=== PATIENT | male | born 1945 | race Two or more races ===

== ENCOUNTER 2018-08-23 21:19 | Inpatient (IN) | payer MEDICARE, OTHER ==
[~2018-08-23] VITALS: Ht 167.6 cm; Wt 74.8 kg
[2018-08-23 21:30] VITALS: BP 115/63
[2018-08-23] MEDS ORDERED: MAGNESIUM HYDROXIDE 30 ML UDC PO PRN (21:30)
[2018-08-23] MEDS ORDERED: MAG HYDROX/AL HYDROX/SIMETH 30 ML UDC PO PRN (21:30)
[2018-08-23] MEDS ORDERED: ACETAMINOPHEN 325 MG TABLET PO PRN (21:30)
--- NOTE | 2018-08-23 21:30 | NUR ---
PATIENT ADMITTED DIRECTLY FROM [facility] ON 5149 FOR DTO/GD. CAME TO THE UNIT AROUND 2129 VIA GURNEY, BROUGHT IN BY 2 MALE PARAMEDICS. PATIENT IS ADMITTED DUE TO HIS AGGRESSIVE BEHAVIOR TOWARDS HIS FAMILY MEMBERS AND STAFF, PATIENT WAS CONFUSED AND DISORGANIZED. PLACED PATIENT IN BED COMFORTABLY. PATIENT SHOWS NO S/S OF AF ANY DISTRESS, RESPIRATION EVEN, BREATHING PATTERN NON-LABORED, NO DISCOMFORT NOTED. PATIENT IS ALERT, DOES NOT INTERACT WHEN ENGAGED, CONFUSED, DISORGANIZED, DISORIENTED, DISHEVELED, UNKEMPT. UNCOOPERATIVE, COMBATIVE, AGGRESSIVE, IRRITABLE, UNABLE TO PROVIDE PERTINENT INFORMATIONS. BELONGINGS WERE INVENTORIED AND CHECKED FOR CONTRABAND. PATIENT REFUSED TO SIGN CONSENT. ORDERS WERE OBTAINED FROM OLLIE HOGAN, [facility] RECON DONE BY DR. COOK. DAUGHTER SHAISTA CALLED AND INQUIRED ABOUT HER DAD'S ADMISSION TO THE UNIT, PATIENT SLEEPING AT THE TIME. PATIENT IS HIGH RISK FOR FALL, UNSTEADY GAIT. BED LOCKED AND PLACED ON LOWEST POSITION TO MAINTAIN SAFETY. WILL CONTINUE TO MONITOR Q 15 MINS. FOR SAFETY AND BEHAVIOR.
[2018-08-23] MEDS ORDERED: LACT10SO PO (23:46)
[2018-08-23] MEDS ORDERED: ASPI-1169 PO (23:46)
[2018-08-23] MEDS ORDERED: LISI10TA5 PO (23:46)
[2018-08-23] MEDS ORDERED: METO50TA16 PO (23:46)
[2018-08-23] MEDS ORDERED: ENOX40DI SQ (23:46)
[2018-08-23] MEDS ORDERED: ATOR20TA PO (23:46)
[2018-08-23] MEDS ORDERED: DIVA500T2 PO (23:46)
[2018-08-23] MEDS ORDERED: OLAN10TA3 PO (23:46)
--- NOTE | 2018-08-24 07:30 | NUR ---
GPS RN Opening Note Patient currently in bed resting quietly. No acute distress noted, no agitation or complaints of pain at this time. Alert and oriented x 1, some confusion noted. Able to follow simple commands and able to make needs known in [place] Timorese/Bruneian. Respirations even and unlabored, saturating within baseline on room air. Safety environment observed at all times, Q [address] checks in place. Sitter at bedside. Fall and Safety precautions maintained: bed in lowest and locked position, side rails up x 2, bed alarm on. Will continue to monitor and intervene as needed.
[2018-08-24 08:00] VITALS: BP 129/70
[2018-08-24] MEDS: LACTULOSE 10 G/15 ML UDC (PYXIS) PO SCH ×3 (13:08→21:20)
[2018-08-24] MEDS: ASPIRIN 81 MG TAB.CHEW PO SCH (13:09)
[2018-08-24] MEDS: METOPROLOL TARTRATE 50 MG TABLET PO SCH ×2 (13:09→16:26)
[2018-08-24] MEDS: DIVALPROEX SODIUM 500 MG TABLET.DR PO SCH ×2 (13:09→16:26)
[2018-08-24] MEDS: LISINOPRIL (10MG) 10 MG TABLET PO SCH (13:09)
--- NOTE | 2018-08-24 14:00 | NUR ---
Encouraged frequent PO intake; educated on importance of hydration to improve renal function.
[2018-08-24 14:18] LABS: BASOPHILS % (AUTO) 0.2 % (0.0-2.0); EOSINOPHILS % (AUTO) 0.5 % (0.0-6.0); HEMATOCRIT 45 % (39-51); HEMOGLOBIN 15.8 g/dL (13.5-17.5); LYMPHOCYTES # (AUTO) 1.7 /CMM (0.8-4.8); LYMPHOCYTES % (AUTO) 17.2 % (20.0-44.0); MEAN CORPUSCULAR HGB CONC 35 g/dl (31.0-36.0); MEAN CORPUSCULAR VOLUME 94 fL (80-96); MONOCYTES % (AUTO) 9.8 % (2.0-12.0); NEUTROPHILS # (AUTO) 7.3 /CMM (1.8-8.9); NEUTROPHILS % (AUTO) 72.3 % (43.0-81.0); PLATELET COUNT (AUTO) 212 /CMM (150-450); RED BLOOD CELL COUNT(AUTO) 4.76 MIL/uL (4.5-6.0)
--- NOTE | 2018-08-24 14:20 | NUR ---
SUNSHINE called the pt's daughter in law, Virginie ([phone]), and then was placed on a three way call with her and the pt's , Yesi ([phone]). The two families and the caller discussed the pt's initial treatment and discharge plan. It was discussed that the pt can return home if he is stable but it would be preferable for the pt to be placed in a facility for a short time period. The SW stated that she can start on the referral process to the facilities in their area on Monday when there are more notes available from the doctor.
--- NOTE | 2018-08-24 14:23 | NUR ---
Initial Discharge Note: Pt currently resides at [address] [place] [address]; ([phone]) with his and his disabled adult son. Per pt's family, the pt can return home but a facility would be preferred. Per pt, he would like to return home upon discharge. SW will work with the pt and the MD regarding appropriate discharge planning. SW will form a safe and proper discharge.
[2018-08-24 14:25] LABS: ALANINE AMINOTRANSFERASE 30 U/L (12-78); ALBUMIN 4.3 g/dL (3.4-5.0); ALKALINE PHOSPHATASE 46 U/L (46-116); ASPARTATE AMINOTRANSFERASE 40 U/L (15-37); BILIRUBIN,TOTAL 1.1 mg/dL (0.2-1.0); CALCIUM, SERUM 9.1 mg/dL (8.5-10.1); CARBON DIOXIDE 25 mmol/L (21-32); CHLORIDE 105 mmol/L (98-107); CHOLESTEROL 124 mg/dL (<200); CREATININE 2.1 mg/dL (0.6-1.3); GLUCOSE 173 mg/dL (74-106); HDL CHOLESTEROL 39 mg/dL (40-60); LDL 79 mg/dL (0-99); POTASSIUM 3.7 mmol/L (3.5-5.1); SODIUM SERUM 144 mmol/L (136-145); TOTAL PROTEIN, SERUM 7.9 g/dL (6.4-8.2); TRIGLYCERIDES 88 mg/dL (30-150); UREA NITROGEN, BLOOD 29 mg/dL (7-18)
[2018-08-24] MEDS: ENOXAPARIN SODIUM 30 MG/0.3 ML DISP.SYRIN SQ SCH (14:58)
[2018-08-24 15:58] VITALS: BP 121/77
[2018-08-24] MEDS: LORAZEPAM 0.5 MG TABLET PO PRN (18:05)
[2018-08-24 20:24] VITALS: BP 103/60
[2018-08-24] MEDS: TEMAZEPAM 7.5 MG CAPSULE PO PRN (21:20)
[2018-08-25 06:42] LABS: BASOPHILS % (AUTO) 0.4 % (0.0-2.0); EOSINOPHILS % (AUTO) 0.7 % (0.0-6.0); HEMATOCRIT 44 % (39-51); HEMOGLOBIN 15.6 g/dL (13.5-17.5); LYMPHOCYTES # (AUTO) 1.8 /CMM (0.8-4.8); LYMPHOCYTES % (AUTO) 17.7 % (20.0-44.0); MEAN CORPUSCULAR HGB CONC 35 g/dl (31.0-36.0); MEAN CORPUSCULAR VOLUME 94 fL (80-96); MONOCYTES # (AUTO) 0.9 /CMM (0.1-1.30); MONOCYTES % (AUTO) 8.7 % (2.0-12.0); NEUTROPHILS # (AUTO) 7.4 /CMM (1.8-8.9); NEUTROPHILS % (AUTO) 72.5 % (43.0-81.0); PLATELET COUNT (AUTO) 198 /CMM (150-450); RED BLOOD CELL COUNT(AUTO) 4.72 MIL/uL (4.5-6.0); WHITE BLOOD COUNT (AUTO) 10.3 K/uL (4.3-11.0)
[2018-08-25 06:53] LABS: CALCIUM, SERUM 9.1 mg/dL (8.5-10.1); CARBON DIOXIDE 25 mmol/L (21-32); CHLORIDE 104 mmol/L (98-107); CREATININE 1.8 mg/dL (0.6-1.3); GLUCOSE 127 mg/dL (74-106); MAGNESIUM 2.2 mg/dL (1.8-2.4); PHOSPHORUS 3.6 mg/dL (2.5-4.9); SODIUM SERUM 142 mmol/L (136-145); UREA NITROGEN, BLOOD 32 mg/dL (7-18)
[2018-08-25 08:00] VITALS: BP 118/72
[2018-08-25] MEDS: ASPIRIN 81 MG TAB.CHEW PO SCH (08:39)
[2018-08-25] MEDS: LISINOPRIL (10MG) 10 MG TABLET PO SCH (08:39)
[2018-08-25] MEDS: DIVALPROEX SODIUM 500 MG TABLET.DR PO SCH ×3 (08:39→16:35)
[2018-08-25] MEDS: LACTULOSE 10 G/15 ML UDC (PYXIS) PO SCH ×4 (08:40→21:11)
[2018-08-25] MEDS: METOPROLOL TARTRATE 50 MG TABLET PO SCH ×2 (08:40→16:35)
[2018-08-25] MEDS: ENOXAPARIN SODIUM 30 MG/0.3 ML DISP.SYRIN SQ SCH (08:50)
[2018-08-25 15:49] VITALS: BP 100/59
[2018-08-25 20:00] VITALS: BP 124/60
[2018-08-25] MEDS: ATORVASTATIN 10 MG TABLET PO SCH (21:11)
[2018-08-25] MEDS: OLANZAPINE 5 MG/TAB.RAPDIS PO SCH (21:12)
[2018-08-25] MEDS: TEMAZEPAM 7.5 MG CAPSULE PO PRN (21:54)
[2018-08-25] MEDS: LORAZEPAM 0.5 MG TABLET PO PRN (22:17)
--- NOTE | 2018-08-25 22:17 | NUR ---
GPS-RN PRN NOTES: PATIENT IS VERY ANXIOUS AND RESTLESS, ATTEMPTING TO GET OUT OF BED. ADMINISTERED ATIVAN 1MG PO ORDERED. WILL CONTINUE TO MONITOR CLOSELY PATIENT'S SAFETY AND BEHAVIOR.
[2018-08-26 08:00] VITALS: BP 108/69
[2018-08-26] MEDS: ENOXAPARIN SODIUM 30 MG/0.3 ML DISP.SYRIN SQ SCH (08:35)
[2018-08-26] MEDS: LISINOPRIL (10MG) 10 MG TABLET PO SCH (08:36)
[2018-08-26] MEDS: LACTULOSE 10 G/15 ML UDC (PYXIS) PO SCH ×4 (08:36→21:06)
[2018-08-26] MEDS: DIVALPROEX SODIUM 500 MG TABLET.DR PO SCH ×3 (08:37→16:27)
[2018-08-26] MEDS: OLANZAPINE 5 MG/TAB.RAPDIS PO SCH ×2 (08:37→21:06)
[2018-08-26] MEDS: METOPROLOL TARTRATE 50 MG TABLET PO SCH ×2 (08:37→16:22)
[2018-08-26] MEDS: ASPIRIN 81 MG TAB.CHEW PO SCH (08:37)
[2018-08-26 16:00] VITALS: BP 94/71
[2018-08-26 20:05] VITALS: BP 124/75
[2018-08-26] MEDS: ATORVASTATIN 10 MG TABLET PO SCH (21:06)
[2018-08-26] MEDS: TEMAZEPAM 7.5 MG CAPSULE PO PRN (21:37)
[2018-08-27] MEDS: LORAZEPAM 0.5 MG TABLET PO PRN ×2 (00:55→19:53)
[2018-08-27 08:00] VITALS: BP 141/81
[2018-08-27] MEDS: LACTULOSE 10 G/15 ML UDC (PYXIS) PO SCH ×5 (08:33→21:00)
[2018-08-27] MEDS: ASPIRIN 81 MG TAB.CHEW PO SCH ×2 (08:33→09:00)
[2018-08-27] MEDS: DIVALPROEX SODIUM 500 MG TABLET.DR PO SCH ×4 (08:34→17:51)
[2018-08-27] MEDS: METOPROLOL TARTRATE 50 MG TABLET PO SCH ×3 (08:34→17:51)
[2018-08-27] MEDS: LISINOPRIL (10MG) 10 MG TABLET PO SCH ×2 (08:34→09:00)
[2018-08-27] MEDS: OLANZAPINE 5 MG/TAB.RAPDIS PO SCH ×3 (08:35→21:24)
[2018-08-27] MEDS: ENOXAPARIN SODIUM 30 MG/0.3 ML DISP.SYRIN SQ SCH (08:44)
--- NOTE | 2018-08-27 09:00 | NUR ---
GPS BOTANY LABORATORY ASSISTANT: NOTES PT APPEARS TO BE SEDATED, BUT EASILY AROUSABLE. RESP. EVEN AND UNLABORED. MEDICATIONS HELD AT THIS TIME. WILL CONTINUE TO MONITOR. SITTER AT BEDSIDE.
--- NOTE | 2018-08-27 10:30 | NUR ---
GPS PATROL SERGEANT SHERIFF'S OFFICE: NOTES PT STILL SOUNDLY ASLEEP. RESP EVEN AND UNLABORED. SITTER REMAINS AT BEDSIDE. WILL CONTINUE TO MONITOR.
--- NOTE | 2018-08-27 15:07 | NUR ---
SW called the pt's daughter in law, Virginie ([phone]), and informed her that the psychiatrist has not decided whether or not the pt needs a alf facility or if home would be appropriate for him. The SW stated that once the psychiatrist makes a recommendation, the SW will inform the family and go from there.
[2018-08-27 16:00] VITALS: BP 122/88
[2018-08-27 19:50] VITALS: BP 139/99
--- NOTE | 2018-08-27 19:55 | NUR ---
GPS RN NOTES PT.BEHAVIOR VERY AGRESSIVE , YELLING SCREAMING, NOT FOLLOWING ANY REDIRECTIONS ,ATIVAN 1 MG PO PRN GIVEN , WILL CONTINUE TO MONITOR.
[2018-08-27] MEDS: ATORVASTATIN 10 MG TABLET PO SCH (21:24)
[2018-08-27] MEDS: TEMAZEPAM 7.5 MG CAPSULE PO PRN (23:25)
[2018-08-28 08:00] VITALS: BP 122/78
[2018-08-28] MEDS: DIVALPROEX SODIUM 500 MG TABLET.DR PO SCH ×3 (09:11→17:17)
[2018-08-28] MEDS: LACTULOSE 10 G/15 ML UDC (PYXIS) PO SCH ×4 (09:11→21:14)
[2018-08-28] MEDS: METOPROLOL TARTRATE 50 MG TABLET PO SCH ×2 (09:11→17:00)
[2018-08-28] MEDS: OLANZAPINE 5 MG/TAB.RAPDIS PO SCH ×2 (09:11→21:15)
[2018-08-28] MEDS: ASPIRIN 81 MG TAB.CHEW PO SCH (09:11)
[2018-08-28] MEDS: LISINOPRIL (10MG) 10 MG TABLET PO SCH (09:12)
[2018-08-28] MEDS: ENOXAPARIN SODIUM 30 MG/0.3 ML DISP.SYRIN SQ SCH (09:12)
--- NOTE | 2018-08-28 14:13 | NUR ---
SUNSHINE faxed a referral to these three facilities listed below: [facility]: [phone] [facility]: [phone] [facility]: [phone].
--- NOTE | 2018-08-28 14:54 | NUR ---
Alvina ([phone]) from [facility] called the SW and stated that the pt was admitted to their facility.
[2018-08-28 16:06] VITALS: BP 104/63
[2018-08-28] MEDS: LORAZEPAM 0.5 MG TABLET PO PRN (19:32)
--- NOTE | 2018-08-28 19:33 | NUR ---
GPS RN NOTES: PT.NOTED VERY ANXIOUS RESTLESS ,AGGRESSIVE, UNCOOPERTIVE ,YELLING, SCREAMING,BANGING HEAD FACE ARMS WITH SIDE RAILS ,NOT FOLLOWING ANY REDIRECTIONS ATIVAN 1 MG PO PRN GIVEN,WILL CONTINUE TO MONITOR.
[2018-08-28 20:16] VITALS: BP 100/63
[2018-08-28] MEDS: ATORVASTATIN 10 MG TABLET PO SCH (21:14)
[2018-08-28] MEDS: TEMAZEPAM 7.5 MG CAPSULE PO PRN (23:54)
[2018-08-29] MEDS: DIVALPROEX SODIUM 500 MG TABLET.DR PO SCH ×3 (08:56→16:15)
[2018-08-29] MEDS: ASPIRIN 81 MG TAB.CHEW PO SCH (08:56)
[2018-08-29] MEDS: METOPROLOL TARTRATE 50 MG TABLET PO SCH ×2 (08:56→16:16)
[2018-08-29] MEDS: ENOXAPARIN SODIUM 30 MG/0.3 ML DISP.SYRIN SQ SCH (08:56)
[2018-08-29] MEDS: LISINOPRIL (10MG) 10 MG TABLET PO SCH (08:56)
[2018-08-29] MEDS: LACTULOSE 10 G/15 ML UDC (PYXIS) PO SCH ×4 (08:57→21:16)
[2018-08-29] MEDS: OLANZAPINE 5 MG/TAB.RAPDIS PO SCH ×2 (08:57→21:17)
--- NOTE | 2018-08-29 11:15 | NUR ---
SUNSHINE called Yesi ([phone]), pt's , and informed her that the psychiatrist is recommending a SNF placement. She stated that she understands and agrees to the placement.
[2018-08-29 16:00] VITALS: BP 123/70
[2018-08-29] MEDS: LORAZEPAM 0.5 MG TABLET PO PRN (16:15)
[2018-08-29 20:18] VITALS: BP 92/67
[2018-08-29] MEDS: ATORVASTATIN 10 MG TABLET PO SCH (21:17)
[2018-08-29 23:00] VITALS: BP 107/65
[2018-08-29] MEDS: TEMAZEPAM 7.5 MG CAPSULE PO PRN (23:09)
[2018-08-30 07:50] LABS: APPEARANCE,URINE CLEAR (CLEAR); BILIRUBIN,URINE NEGATIVE (NEGATIVE); BLOOD, URINE NEGATIVE Ery/uL (NEGATIVE); COLOR,URINE YELLOW (YELLOW); KETONES,URINE 1+ (NEGATIVE); LEUKOCYTE ESTERASE ,URINE NEGATIVE (NEGATIVE); NITRITE, URINE NEGATIVE (NEGATIVE); PH,URINE 5.5 (5.0-8.0); PROTEIN,URINE NEGATIVE (NEGATIVE); UGLUCOSE NEGATIVE (NEGATIVE); UROBILINOGEN,URINE 0.2 EU/dL (0.2)
[2018-08-30 08:00] VITALS: BP 143/81
[2018-08-30 08:36] LABS: BACTERIA,URINE None seen /HPF (None Seen); RBC,URINE NONE SEEN /HPF (0-2); SQUAMOUS EPITHELIAL CELL,UR Few /HPF (None Seen); WBC,URINE 0-2 /HPF (0-3)
[2018-08-30] MEDS: ASPIRIN 81 MG TAB.CHEW PO SCH (09:26)
[2018-08-30] MEDS: LACTULOSE 10 G/15 ML UDC (PYXIS) PO SCH ×4 (09:27→21:20)
[2018-08-30] MEDS: DIVALPROEX SODIUM 500 MG TABLET.DR PO SCH ×3 (09:28→16:43)
[2018-08-30] MEDS: METOPROLOL TARTRATE 50 MG TABLET PO SCH ×2 (09:29→16:43)
[2018-08-30] MEDS: OLANZAPINE 5 MG/TAB.RAPDIS PO SCH ×2 (09:29→21:21)
[2018-08-30] MEDS: LISINOPRIL (10MG) 10 MG TABLET PO SCH (09:29)
[2018-08-30] MEDS: ENOXAPARIN SODIUM 30 MG/0.3 ML DISP.SYRIN SQ SCH (09:30)
[2018-08-30 16:01] VITALS: BP 107/59
--- NOTE | 2018-08-30 19:25 | NUR ---
GPS RN NOTES RECEIVED ON BED A/O X1,CONFUSED,DISORIENTED.NOTED BILATERAL ARMS DISCOLORATION,ALONG WITH THE LEGS AND FOOT.SITTER AT BEDSIDE FOR SAFETY.WILL CONTINUE TO MONITOR BEHAVIOR.
[2018-08-30 20:00] VITALS: BP 113/54
[2018-08-30] MEDS: ATORVASTATIN 10 MG TABLET PO SCH (21:21)
[2018-08-30] MEDS: TEMAZEPAM 7.5 MG CAPSULE PO PRN (21:21)
[2018-08-31 07:53] LABS: BASOPHILS % (AUTO) 0.5 % (0.0-2.0); EOSINOPHILS % (AUTO) 0.4 % (0.0-6.0); HEMATOCRIT 42 % (39-51); HEMOGLOBIN 14.7 g/dL (13.5-17.5); LYMPHOCYTES # (AUTO) 1.5 /CMM (0.8-4.8); LYMPHOCYTES % (AUTO) 16.5 % (20.0-44.0); MEAN CORPUSCULAR HGB CONC 35 g/dl (31.0-36.0); MEAN CORPUSCULAR VOLUME 94 fL (80-96); MONOCYTES % (AUTO) 10.4 % (2.0-12.0); NEUTROPHILS # (AUTO) 6.6 /CMM (1.8-8.9); NEUTROPHILS % (AUTO) 72.2 % (43.0-81.0); PLATELET COUNT (AUTO) 177 /CMM (150-450); RED BLOOD CELL COUNT(AUTO) 4.47 MIL/uL (4.5-6.0); WHITE BLOOD COUNT (AUTO) 9.2 K/uL (4.3-11.0)
[2018-08-31 08:00] VITALS: BP 104/61
[2018-08-31 08:00] LABS: ALANINE AMINOTRANSFERASE 28 U/L (12-78); ALBUMIN 3.7 g/dL (3.4-5.0); ALKALINE PHOSPHATASE 43 U/L (46-116); ASPARTATE AMINOTRANSFERASE 18 U/L (15-37); BILIRUBIN,TOTAL 0.8 mg/dL (0.2-1.0); CALCIUM, SERUM 8.9 mg/dL (8.5-10.1); CARBON DIOXIDE 26 mmol/L (21-32); CHLORIDE 105 mmol/L (98-107); CREATININE 1.7 mg/dL (0.6-1.3); GLUCOSE 117 mg/dL (74-106); MAGNESIUM 2.6 mg/dL (1.8-2.4); PHOSPHORUS 4.3 mg/dL (2.5-4.9); POTASSIUM 4.2 mmol/L (3.5-5.1); SODIUM SERUM 142 mmol/L (136-145); TOTAL PROTEIN, SERUM 7.3 g/dL (6.4-8.2); UREA NITROGEN, BLOOD 40 mg/dL (7-18)
[2018-08-31] MEDS: METOPROLOL TARTRATE 50 MG TABLET PO SCH ×2 (09:00→17:00)
[2018-08-31] MEDS: LISINOPRIL (10MG) 10 MG TABLET PO SCH (09:00)
[2018-08-31] MEDS: DIVALPROEX SODIUM 500 MG TABLET.DR PO SCH ×3 (10:08→16:54)
[2018-08-31] MEDS: ASPIRIN 81 MG TAB.CHEW PO SCH (10:08)
[2018-08-31] MEDS: LACTULOSE 10 G/15 ML UDC (PYXIS) PO SCH ×4 (10:08→21:31)
[2018-08-31] MEDS: ENOXAPARIN SODIUM 30 MG/0.3 ML DISP.SYRIN SQ SCH (10:09)
[2018-08-31] MEDS: OLANZAPINE 5 MG/TAB.RAPDIS PO SCH ×2 (10:11→21:32)
--- NOTE | 2018-08-31 15:25 | NUR ---
SUNSHINE called Yesi ([phone]), pt's , and informed her that the pt was not accepted to any facility other than [facility]. She stated that she accepts that placement. SUNSHINE informed her that when she receives a discharge date, she will be sure to inform her.
[2018-08-31 16:00] VITALS: BP 108/57
[2018-08-31 20:00] VITALS: BP 104/64
[2018-08-31] MEDS: LORAZEPAM 0.5 MG TABLET PO PRN (21:31)
[2018-08-31] MEDS: ATORVASTATIN 10 MG TABLET PO SCH (21:33)
[2018-08-31] MEDS: TEMAZEPAM 7.5 MG CAPSULE PO PRN (23:24)
[2018-09-01 08:00] VITALS: BP 126/75
[2018-09-01] MEDS: OLANZAPINE 5 MG/TAB.RAPDIS PO SCH ×2 (08:46→21:21)
[2018-09-01] MEDS: ENOXAPARIN SODIUM 30 MG/0.3 ML DISP.SYRIN SQ SCH (08:46)
[2018-09-01] MEDS: ASPIRIN 81 MG TAB.CHEW PO SCH (08:46)
[2018-09-01] MEDS: LACTULOSE 10 G/15 ML UDC (PYXIS) PO SCH ×4 (08:47→20:18)
[2018-09-01] MEDS: METOPROLOL TARTRATE 50 MG TABLET PO SCH ×2 (08:47→17:00)
[2018-09-01] MEDS: LISINOPRIL (10MG) 10 MG TABLET PO SCH (08:47)
[2018-09-01] MEDS: DIVALPROEX SODIUM 125 MG CAP.SPRINK PO SCH ×3 (08:48→17:00)
[2018-09-01 16:00] VITALS: BP 119/60
--- NOTE | 2018-09-01 17:56 | NUR ---
GPS/RN PT REFUSED 1700 MEDS OFFERED X3.
[2018-09-01 20:00] VITALS: BP 116/80
[2018-09-01] MEDS: ATORVASTATIN 10 MG TABLET PO SCH (21:22)
[2018-09-01] MEDS: TEMAZEPAM 7.5 MG CAPSULE PO PRN (21:22)
[2018-09-02 08:00] VITALS: BP 131/87
[2018-09-02] MEDS: OLANZAPINE 5 MG/TAB.RAPDIS PO SCH ×2 (10:17→22:16)
[2018-09-02] MEDS: LACTULOSE 10 G/15 ML UDC (PYXIS) PO SCH ×4 (10:17→21:30)
[2018-09-02] MEDS: DIVALPROEX SODIUM 125 MG CAP.SPRINK PO SCH ×3 (10:17→16:20)
[2018-09-02] MEDS: LISINOPRIL (10MG) 10 MG TABLET PO SCH (10:18)
[2018-09-02] MEDS: ENOXAPARIN SODIUM 30 MG/0.3 ML DISP.SYRIN SQ SCH (10:18)
[2018-09-02] MEDS: ASPIRIN 81 MG TAB.CHEW PO SCH (10:19)
[2018-09-02] MEDS: METOPROLOL TARTRATE 50 MG TABLET PO SCH ×2 (10:19→16:20)
--- NOTE | 2018-09-02 12:05 | NUR ---
ALERTED BY PROFESSOR OF SPANISH PT. WITH LOW BP.,70/50 RT. ARM. RECHECKED LT. [id number]
--- NOTE | 2018-09-02 12:10 | NUR ---
BP113/63,POX FLUCTUATING.AT 1206 02 0N AT 5L AND LEVEL UP TO 92-93%.THEN SUDDENLY POX TO 89%.RESP. TX CALLED BY RN AND ABG ORDERED.PT. SITTING UPRIGHT IN CHAIR.GROGGY TO LETHARGICTHEN PERIODICALLY FIDGETY IN CHAIR. FAMILY PRESENT.
--- NOTE | 2018-09-02 12:14 | NUR ---
BP 97/69.HEART RATE 88,POX STILL FLUCTUATING,O2 MASK APPLIED AT 8L.
[2018-09-02 12:52] LABS: ABG BASE EXCESS 1.9 mmol/L; ABG PCO2 31.7 mmHg (35.0-45.0); ABG PH 7.501 (7.350-7.450); ABG PO2 71.1 mmHg (75.0-100.0); AaDO2 177.6 mmHg; SITE, ABG Right Radial; VENT MODE, BG Nasal Cannula
--- NOTE | 2018-09-02 12:53 | NUR ---
DR. STONE NOTIFIED THAT PT. IS LETHARGIC. BP 91/58, WI 90 AND OXYGEN SAT 88% WITH 5L OXYGEN VIA NASAL. PT. WITH AN ORDER TO STAT CBC, BMP, STAT U/A AND URINE CULTURE AND TO DO IN AND OUT.
--- NOTE | 2018-09-02 12:55 | NUR ---
PT. BACK TO BED CATH DONE OBTAINED 450 ML ARIADNA COLORED URINE.PT STARTLED WHEN CATH INSERTED AND MOMENTARILY AWAKE.NOW A LITTLE RESTLESS AND PUT BACK IN QUINCY CHAIR.RECEIVED LABS AND ABG RESULTS.
[2018-09-02 13:23] LABS: APPEARANCE,URINE CLEAR (CLEAR); BASOPHILS % (AUTO) 0.2 % (0.0-2.0); BILIRUBIN,URINE 1+ (NEGATIVE); BLOOD, URINE NEGATIVE Ery/uL (NEGATIVE); COLOR,URINE AMBER (YELLOW); EOSINOPHILS % (AUTO) 0.1 % (0.0-6.0); HEMATOCRIT 45 % (39-51); HEMOGLOBIN 15.6 g/dL (13.5-17.5); KETONES,URINE 1+ (NEGATIVE); LEUKOCYTE ESTERASE ,URINE NEGATIVE (NEGATIVE); LYMPHOCYTES # (AUTO) 0.8 /CMM (0.8-4.8); LYMPHOCYTES % (AUTO) 7.5 % (20.0-44.0); MEAN CORPUSCULAR HGB CONC 34 g/dl (31.0-36.0); MEAN CORPUSCULAR VOLUME 95 fL (80-96); MONOCYTES # (AUTO) 1.1 /CMM (0.1-1.30); MONOCYTES % (AUTO) 10.2 % (2.0-12.0); NEUTROPHILS # (AUTO) 8.9 /CMM (1.8-8.9); NITRITE, URINE NEGATIVE (NEGATIVE); PLATELET COUNT (AUTO) 212 /CMM (150-450); PROTEIN,URINE 1+ mg/dl (NEGATIVE); UGLUCOSE 2+ mg/dL (NEGATIVE); UROBILINOGEN,URINE 0.2 EU/dL (0.2); WHITE BLOOD COUNT (AUTO) 10.9 K/uL (4.3-11.0)
[2018-09-02 13:29] LABS: BACTERIA,URINE Rare /HPF (None Seen); MUCUS,URINE Few /LPF (None Seen); RBC,URINE 0-2 /HPF (0-2); SQUAMOUS EPITHELIAL CELL,UR 0-2 /HPF (None Seen); URINE AMORPHOUS URATE Few /HPF (None Seen)
[2018-09-02] MEDS ORDERED: TEMAZEPAM 7.5 MG CAPSULE PO PRN (13:30)
[2018-09-02 13:36] LABS: CALCIUM, SERUM 9.3 mg/dL (8.5-10.1); CARBON DIOXIDE 28 mmol/L (21-32); CHLORIDE 102 mmol/L (98-107); CREATININE 1.8 mg/dL (0.6-1.3); GLUCOSE 196 mg/dL (74-106); POTASSIUM 4.2 mmol/L (3.5-5.1); SODIUM SERUM 140 mmol/L (136-145); UREA NITROGEN, BLOOD 30 mg/dL (7-18)
--- NOTE | 2018-09-02 14:10 | NUR ---
DR. STONE RECALLED AND INFORMED OF LOW BP87/57,HR 92.POX 92-98%.PT. STILL VERY GROGGY ORDERS GIVEN FOR IV FLUIDS
[2018-09-02] MEDS ORDERED: IV NS 0.9% 1,000 ML BAG IV PRN (14:30)
[2018-09-02] MEDS ORDERED: IV NS 0.9% 1,000 ML IV ONE (14:30)
--- NOTE | 2018-09-02 14:45 | NUR ---
ANGIOCATH #22 PLACED RT. FOREARM FOR BOLUS FLUIDS.PT. TOLERATED FAIRLY WELL.DR. STONE HERE TO SEE PT AND ADDITIONALLY SPOKE WITH FAMILY.
[2018-09-02 16:00] VITALS: BP 102/67
[2018-09-02 20:16] VITALS: BP 98/50
[2018-09-02] MEDS: ATORVASTATIN 10 MG TABLET PO SCH (22:00)
--- NOTE | 2018-09-02 22:20 | NUR ---
UNABLE TO GET ATORVASTATIN SUPPLY FROM OTHER UNIT. CN MADE AWARE.
[2018-09-03 07:24] LABS: BASOPHILS % (AUTO) 0.4 % (0.0-2.0); EOSINOPHILS % (AUTO) 1.3 % (0.0-6.0); HEMATOCRIT 42 % (39-51); HEMOGLOBIN 14.5 g/dL (13.5-17.5); LYMPHOCYTES # (AUTO) 1.2 /CMM (0.8-4.8); LYMPHOCYTES % (AUTO) 15.2 % (20.0-44.0); MEAN CORPUSCULAR HGB CONC 35 g/dl (31.0-36.0); MEAN CORPUSCULAR VOLUME 95 fL (80-96); MONOCYTES # (AUTO) 0.9 /CMM (0.1-1.30); MONOCYTES % (AUTO) 11.3 % (2.0-12.0); NEUTROPHILS # (AUTO) 5.8 /CMM (1.8-8.9); NEUTROPHILS % (AUTO) 71.8 % (43.0-81.0); PLATELET COUNT (AUTO) 194 /CMM (150-450); RED BLOOD CELL COUNT(AUTO) 4.39 MIL/uL (4.5-6.0); WHITE BLOOD COUNT (AUTO) 8.1 K/uL (4.3-11.0)
[2018-09-03 07:25] LABS: CALCIUM, SERUM 9.1 mg/dL (8.5-10.1); CARBON DIOXIDE 29 mmol/L (21-32); CHLORIDE 107 mmol/L (98-107); CREATININE 1.8 mg/dL (0.6-1.3); GLUCOSE 111 mg/dL (74-106); POTASSIUM 4.1 mmol/L (3.5-5.1); SODIUM SERUM 145 mmol/L (136-145); UREA NITROGEN, BLOOD 41 mg/dL (7-18)
[2018-09-03 08:00] VITALS: BP 90/59
[2018-09-03] MEDS: LISINOPRIL (10MG) 10 MG TABLET PO SCH (09:00)
[2018-09-03] MEDS: METOPROLOL TARTRATE 50 MG TABLET PO SCH ×2 (09:00→17:18)
[2018-09-03] MEDS: ENOXAPARIN SODIUM 30 MG/0.3 ML DISP.SYRIN SQ SCH (09:40)
[2018-09-03] MEDS: LACTULOSE 10 G/15 ML UDC (PYXIS) PO SCH ×4 (09:41→22:05)
[2018-09-03] MEDS: DIVALPROEX SODIUM 125 MG CAP.SPRINK PO SCH ×3 (09:41→17:18)
[2018-09-03] MEDS: ASPIRIN 81 MG TAB.CHEW PO SCH (09:41)
[2018-09-03] MEDS: OLANZAPINE 5 MG/TAB.RAPDIS PO SCH ×2 (09:41→22:05)
--- NOTE | 2018-09-03 12:11 | NUR ---
Alvina ([phone]) from [facility] called the SW and confirmed that the pt is still being discharged to their facility. The SW said that he is but that she has not received a discharge date from the psychiatrist.
--- NOTE | 2018-09-03 13:26 | NUR ---
SW called Yesi ([phone]), pt's , and informed her that the pt will be discharged to [facility] tomorrow. She stated that she has concerns about the medications and the SW stated that the pt needs time to adjust to them and therefore him being at a fdc facility would be beneficial because it gives his body more time to adjust in a safe environment. She stated that she understands but would still appreciate a call from the psychiatrist later this evening.
--- NOTE | 2018-09-03 13:33 | NUR ---
SUNSHINE called Alvina ([phone]) from [facility] and informed her that the pt will be discharged tomorrow per Dr. Silver.
[2018-09-03 16:00] VITALS: BP 130/71
[2018-09-03 20:00] VITALS: BP 106/75
[2018-09-03] MEDS: LORAZEPAM 0.5 MG TABLET PO PRN (20:09)
[2018-09-03] MEDS: ATORVASTATIN 10 MG TABLET PO SCH (22:05)
[2018-09-04 08:00] VITALS: BP 102/56
[2018-09-04] MEDS: ASPIRIN 81 MG TAB.CHEW PO SCH (08:30)
[2018-09-04] MEDS: LACTULOSE 10 G/15 ML UDC (PYXIS) PO SCH (08:30)
[2018-09-04] MEDS: DIVALPROEX SODIUM 125 MG CAP.SPRINK PO SCH (08:31)
[2018-09-04] MEDS: OLANZAPINE 5 MG/TAB.RAPDIS PO SCH (08:32)
[2018-09-04] MEDS: ENOXAPARIN SODIUM 30 MG/0.3 ML DISP.SYRIN SQ SCH (08:34)
[2018-09-04] MEDS: METOPROLOL TARTRATE 50 MG TABLET PO SCH (08:36)
[2018-09-04 08:37] VITALS: BP 102/56
[2018-09-04] MEDS: LISINOPRIL (10MG) 10 MG TABLET PO SCH (08:37)
--- NOTE | 2018-09-04 09:22 | NUR ---
RN-CO: DR LEVIN GAVE AN ORDER TO DISCONTIUE HOLD AND DISCHARGE THE PATIENT,NOTED. LISA IS AWARE.
--- NOTE | 2018-09-04 10:45 | NUR ---
SW called Yesi ([phone]), pt's , and confirmed that the pt will be discharged today at around 12pm so that he can arrive to the facility around 1pm. The SW stated that she is available if there are any questions regarding the facility.
--- NOTE | 2018-09-04 12:45 | NUR ---
RN NOTES 73 YEARS OLD MALE DISCHARGED TO [facility] IN INSTABLE CONDITION . COMPLIANT WITH MEDS, PT DENIES SI/HI , BEHAVIOR IMPROVED, PSYCHIATRIC TX PLAN MET, PERSONAL BELONGING GIVEN TO EMT TO TAKE IT TO THE FACILITY, REPORT GIVEN TO CATHERINE TERRY AT THE FACILITY, SKIN PHOTO TAKEN AND PLACED IN THE CHART. PT LEFT THE FLOOR TO [facility] ACCOMPANIED BY EMT PERSONAL IN STABLE CONDITION .
--- NOTE | 2018-09-04 14:37 | NUR ---
Discharge Note: Pt was discharged to [facility] ([facility]) located at [address] [place] [address]; . Pt was transported via [facility] (Trip #[id number]) at 12PM. Pts , Yesi ([phone]), was notified of this placement and she agreed. Upon discharge, the pt appeared to be in a dysphoric mood and presented with an irritated affect. Pt denied both suicidal and homicidal ideation as well as auditory and visual hallucinations. Pt will continue to be in the care of his psychiatrist, Dr. Silver, located at [address] [place] [address]; and his top and seat cover fitter, Dr. Reyna, located at [address] [facility] [address], [place] [address]; .
== END 2018-09-04 12:45 | DRG 885 ==
LOC: GPS 21:19
PROVIDERS: ADMIT Psychiatry & Neurology Psychiatry; ATTEND Psychiatry & Neurology Psychiatry
DX: F29 Unspecified psychosis not due to a substance or known physiological condition (principal); N18.3 Chronic kidney disease, stage 3 (moderate); N17.9 Acute kidney failure, unspecified; F41.9 Anxiety disorder, unspecified; F39 Unspecified mood [affective] disorder; I25.10 Atherosclerotic heart disease of native coronary artery without angina pectoris; I25.2 Old myocardial infarction; I12.9 Hypertensive chronic kidney disease with stage 1 through stage 4 chronic kidney disease, or unspecified chronic kidney disease; E78.5 Hyperlipidemia, unspecified; F03.90 Unspecified dementia, unspecified severity, without behavioral disturbance, psychotic disturbance, mood disturbance, and anxiety; R41.82 Altered mental status, unspecified; T50.905A Adverse effect of unspecified drugs, medicaments and biological substances, initial encounter; Y92.89 Other specified places as the place of occurrence of the external cause; I95.89 Other hypotension
CPT/HCPCS: 36415; 36600; 80048-TC; 80053-TC; 80061-TC; 80164-TC; 81000-TC; 82803-TC; 83735-TC; 84100-TC; 85025-TC; 87081-TC; 87086-TC; J1650; J7030